=== PATIENT | male | born 1990 | race American Indian/Alaskan Native ===

== ENCOUNTER 2021-02-23 02:06 | Emergency (ER) | payer SELFPAY ==
[2021-02-23 02:27] VITALS: BP 117/57
== END 2021-02-23 08:10 | disposition left against medical advice (07) ==
LOC: ED 02:06
DX: T23.001A Burn of unspecified degree of right hand, unspecified site, initial encounter (principal); Z53.21 Procedure and treatment not carried out due to patient leaving prior to being seen by health care provider; X08.8XXA Exposure to other specified smoke, fire and flames, initial encounter; Y93.89 Activity, other specified; Y92.89 Other specified places as the place of occurrence of the external cause; Y99.8 Other external cause status